=== PATIENT | male | born 1975 | race Caucasian/White ===

== ENCOUNTER 2019-01-12 23:47 | Emergency (ER) | payer OTHER, SELFPAY ==
--- NOTE | 2019-01-12 23:56 | DI.RAD.S_ITS ---
PROCEDURE: XR ANKLE RT MIN 3V INDICATIONS: Pain after injury yesterday TECHNIQUE: 3 views of the ankle were acquired. COMPARISON: None. FINDINGS: Bones: No fractures or dislocations. Mild widening of the distal tibiofibular syndesmosis appears to be present with corresponding widening of the lateral clear space. A rounded ossific/calcific density is evident within the lateral clear space, which is felt to be related to previous trauma. No suspicious bony lesions. Small plantar and Achilles spurs of the calcaneus are present. Soft tissues: A small ankle effusion is present. The overlying soft tissues demonstrate prominent swelling along the lateral malleolus. IMPRESSION: 1. No acute fracture of the right ankle. 2. Prominent swelling overlying the lateral malleolus. MRI may be helpful to exclude internal derangement. 3. Widening of the distal tibiofibular syndesmosis is concerning for syndesmotic injury. This may potentially be chronic. 4. Probable old injury to the lateral ankle ligaments. Note: The preliminary ED findings and the final radiology report are concordant. Dictated by: Kristian Sanches M.D. on 01/13/2019 at 6:35 Approved by: Kristian Sanches M.D. on 01/13/2019 at 6:40
--- NOTE | 2019-01-12 23:56 | ED_ITS ---
HPI - Extremity Injury (Lower) General Chief Complaint: Extremity Injury, Lower Stated Complaint: right ankle sprain, dizziness head inj [id number] Time Seen by Provider: 01/12/19 23:54 Source: patient Mode of arrival: ambulatory Limitations: no limitations History of Present Illness HPI Narrative: 43-year-old male here for evaluation of right ankle injury. Patient states that yesterday he rolled his right ankle I was at work. Today he has swelling and bruising under the outside aspect of it. Has injured his ankles in the past. He is able to ambulate but has quite a bit of discomfort. Related Data Allergies Allergy/AdvReac Type Severity Reaction Status Date / Time No Known Drug Allergies Allergy Verified 01/12/19 23:56 Review of Systems Constitutional Denies fever(s) Cardiovascular Denies chest pain and Denies dyspnea Respiratory Denies dyspnea Gastrointestinal Gastrointestinal: Denies abdominal pain Musculoskeletal Denies tingling Comments: Right ankle pain Integumentary/Breasts Comments: Bruising the right ankle Neurologic Denies tingling Hematologic/Lymphatic Denies easy bleeding and Denies easy bruising [facility] Medical History Patient denies medical problems (Acute) Social History Smoking Status: Unknown if ever smoked Social History Smoking Status: Unknown if ever smoked Exam Initial Vital Signs Initial Vital Signs: Vital Signs Temperature 97.9 F 01/12/19 23:57 Pulse Rate 60 01/12/19 23:57 Respiratory Rate 15 01/12/19 23:57 Blood Pressure 163/70 H 01/12/19 23:57 Pulse Oximetry 99 01/12/19 23:57 Const General: cooperative, comfortable, well developed and well groomed Orientation: alert and awake HENOR Head: normal to inspection and normocephalic Cardio Pulses: dorsalis pedis present on the right Skin Other: Bruising inferior aspect of the right lateral malleolus Neuro General: alert and awake Gait: other (Favoring his right ankle) Extrem Other: No proximal fibula tenderness. Tenderness to palpation along the lateral aspect of the right ankle. Procedures Orthopedic Splinting/Casting Injury #1: Side: right Lower Extremity Injury Location: ankle Post splinting neuro exam: intact Post splinting vascular exam: intact Placed by: Nursing Course Orders Ordered: ED Orders 01/12/19 23:56 XR ankle RT min 3V Stat Vital Signs - 8 hr 01/12/19 23:57 01/13/19 00:40 Temperature 97.9 F Pulse Rate 60 70 Respiratory Rate 15 18 Blood Pressure 163/70 H 150/70 H Pulse Oximetry 99 99 MDM - Extremity Injury (Lower) Imaging Data X-ray right ankle: Attestation: I personally reviewed and interpreted this imaging study as follows: My impression: No fractures, no dislocations, MDM Narrative Medical decision making narrative: Patient is neurovascularly intact. No fractures in the x-ray. Suspect ankle fracture. Discussed rice. Patient was given an Jong bandage for comfort. Patient denied the need for crutches. He is given return precautions follow-up instructions. Expressed understanding and agreement plan. Discharge Plan Departure Patient Disposition: Home Clinical Impression: Ankle sprain and strain Discharge Date/Time: 01/13/19 00:40 Interventions: ED Discharge Assessment Last Done: 01/13/19 00:40 Instructions: DI for Ankle Sprain, How To Perform RICE (Rest, Ice, Compress, Elevate), How to Apply an Elastic Wrap on Ankle Activity Restrictions/Additional Instructions: Recommend you keep your ankle elevated. You can use the Jong bandage as needed for support. On Tuesday contact your medical department to discuss further work- related restrictions. Stand Alone Forms: Work Release Note
[2019-01-12 23:57] VITALS: BP 163/70; PULSE 60; RESP 15; TEMP 36.6; O2SAT 99; BMI 29.8
[2019-01-13 00:40] VITALS: BP 150/70; PULSE 70; RESP 18; O2SAT 99
== END 2019-01-13 00:40 | disposition home or self-care (01) ==
PROVIDERS: Emergency Provider Emergency Medicine
DX: S93.401A Sprain of unspecified ligament of right ankle, initial encounter (principal); S96.911A Strain of unspecified muscle and tendon at ankle and foot level, right foot, initial encounter
CPT/HCPCS: 73610; 99282; 99283